=== PATIENT | male | born 1935 | race Caucasian/White ===

== ENCOUNTER → 2017-05-29 | Outpatient (CLI) | payer MEDICARE, BC ==
[~2017-05-29] MED LIST: ASPIRIN PO; CENTRUM PO; COLACE PO; DIOVAN HCT 160-1 TAB PO; FERROUS SULFATE PO; IRON1 TAB PO; LIPITOR PO; LIPITOR20 MG PO; LOSARTAN POTAS100 MG PO; METAMUCIL POWD PO; METAMUCIL1 PKT PO; PROTONIX PO; [UNRECOGNIZED DRUG - OTHER] PO
== END | disposition home or self-care (01) ==
LOC: CLAB 12:05
DX: C61 Malignant neoplasm of prostate (principal)
CPT/HCPCS: 36415; 84153